=== PATIENT | female | born 1970 | race Caucasian/White ===

== ENCOUNTER 2019-06-24 17:31 | Inpatient (IN) ==
--- NOTE | 2019-06-24 22:01 | Internal Med History&Physical ---
Date of Encounter: 06/24/19 Time of Encounter: 21:34 Internal Medicine - H&P: HPI Chief complaint: Sepsis History of present illness: Ms. Hernandez is a 48 year old female with a past medical history of diabetes, GERD, hyperlipidemia, hypertension, kidney stones, migraines and seizure history who presented from [facility] for evaluation of chest pain. However, on arrival was noted to be tachycardic with a heart rate in the 120s and Blood pressure dipped as low as 93/72. Patient reportedly had incision and drainage of an abscess in her left wrist by orthopedics the day prior. Patient had a surgical procedure on June 09 for her carpal tunnel syndrome and trigger finger release. She reports she had significant pain and swelling this last Thursday. ED attending at [facility] spoke with the orthopedic surgeon Dr. Tatum who had performed the I&D and was informed that the lesion had drained well and felt that if patient is currently septic, it is likely due to a different source of infection. Patient was subsequently transferred here for further evaluation and the need for possible orthopedic services. Blood pressure subsequently responding to 2 liter fluid bolus. Initial laboratory workup notable for a leukocytosis of 18.4, creatinine 1.57, lactic acid of 3.57, normal LFTs and unremarkable UA. Repeat lactic acid found to be 3.3 to. Initial troponin negative. EKG showed sinus tachycardia with a heart rate of 114 in the absence of any ST or T-wave changes concerning for ischemia. CT PE study of the chest was performed which was negative for PE and absent for any evidence of acute cardiopulmonary process. Patient received a loading dose of aspirin 2 L of fluid bolus and vancomycin. With regards to the patient's chest pain, she states she was at home in her kitchen fixing some cereal when she developed some discomfort in the bottom of her throat described as a squeezing sensation which radiated down her esophagus and over 2 her left upper quadrant. Patient had associated nausea and several episodes of nonbloody nonbilious emesis; She did note shortness of breath but feels it was related to anxiety and panic. Chest discomfort appeared to resolve after squad arrived and placed on oxygen. Patient became significantly lightheaded this afternoon when getting up and preparing to leave the hospital and reports nearly blacking out. Patient reports she has been having nausea and vomiting last night as well. Patient did not endorse shortness of breath today with her episode of chest discomfort. Patient denies any sore throat, cough, abdominal pain, diarrhea, dysuria or rash. No recent sick contacts or travel. On my assessment patient was lying in bed in no acute distress. Did not appear septic. Reports significant pain in her left hand which was wrapped in an Aiden bandage. Past Med Surg Social Fam HX - Past Medical History Medical history: arthritis, diabetes, GERD, hyperlipidemia, hypertension, kidney stones, migraine, seizures Additional medical history: VAGINAL HERPES Psychiatric history: anxiety, bipolar, depression, panic disorder, prior suicide attempt - Past Surgical History Surgical History: , cholecystectomy, orthopedic, other Additional surgical history: lithotripsy x 6 - Social History Smoking Status: Current every day smoker Packs per day: 0.5 Smokeless Tobacco Status: No Alcohol use: occasionally Drug use: none - Family History Mother Living Status: Still Living Hx Family Cardiac Disorders: Yes Hx Family Cancer: Yes (nonhodgekins, breast cancer) Hx Family Endocrine Disorder: Yes Internal Medicine - H&P: Meds Acyclovir [Zovirax] 800 mg PO HS 09/15/15 [History] Ibuprofen [Motrin] 800 mg PO TID 09/15/15 [History] Insulin Glargine,Hum.rec.anlog [Lantus Solostar] 55 unit SQ BID 09/15/15 [History] Omeprazole [PriLOSEC] 40 mg PO QAM 09/15/15 [History] TraZODone 100 mg PO HS 09/15/15 [History] hydrOXYzine pamoate [HydrOXYzine Pamoate] 25 mg PO Q12H PRN 11/11/17 [History] lamoTRIgine [Lamictal] 75 mg PO HS 11/11/17 [History] Albuterol Sulfate [Proair Hfa] 1 puff IH Q6H PRN 06/24/19 [History] Cyclobenzaprine HCl 10 mg PO HS PRN 06/24/19 [History] Ergocalciferol (VITAMIN D2) [Vitamin D2] 50,000 unit PO QWEEK 06/24/19 [History] Janumet Xr 50-1,000 mg Tablet 06/24/19 [History] Lisinopril/Hydrochlorothiazide [Zestoretic 10-12.5 mg Tablet] 1 each PO QDPC 06/24/19 [History] Oxycodone HCl/Acetaminophen [Percocet 5-325 mg Tablet] 1 each PO Q6H PRN 06/24/19 [History] Pravastatin Sodium [Pravachol] 40 mg PO QDPC 06/24/19 [History] Pregabalin [Lyrica] 150 mg PO TID 06/24/19 [History] SUMAtriptan succinate [Imitrex] 50 mg PO Q2H 06/24/19 [History] Semaglutide [Ozempic] 0.5 mg SQ QWEEK 06/24/19 [History] Allergy/AdvReac Type Severity Reaction Status Date / Time cefazolin [From Ancef] Allergy Severe Anaphylaxis Verified 06/24/19 20:23 Sulfa (Sulfonamide Allergy Severe Anaphylaxis Verified 08/17/18 16:13 Antibiotics) acetaminophen [From [place]] AdvReac Nausea Verified 08/17/18 16:13 hydrocodone [From [place]] AdvReac Nausea Verified 08/17/18 16:13 All Systems PM: A 10-system review of systems was performed and is negative for pertinent findings except as documented above in the HPI. - Constitutional Constitutional: no chills, no fever(s), no night sweats - EENT Eyes: no change in vision, no discharge, no pain, no photophobia Ears: no ear discharge, no ear pain, no tinnitus Nose, mouth and throat: no dysphagia, no nasal discharge, no neck pain, no sore throat - Cardiovascular Cardiovascular ROS IM: no chest pain, no diaphoresis, no dyspnea, no lightheadedness, no palpitations, no syncope - Respiratory Respiratory: no cough, no dyspnea, no wheezing, no excessive phlegm production - Gastrointestinal Gastrointestinal: no abdominal pain, no diarrhea, no hematemesis, no hematochezia, no melena, no nausea, no vomiting - Genitourinary Genitourinary: no change in urinary stream, no dysuria, no flank pain, no hansel turia - Musculoskeletal Musculoskeletal ROS IM: no numbness, no tingling - Integumentary Integumentary IM: no rash, no unusual bruising - Neurological Neurological ROS: no confusion, no convulsions, no focal weakness, no numbness, no tingling, no tremor(s) - Hematologic/Lymphatic Hematologic/Lymphatic: no easy bruising - Constitutional Vitals: Temp Pulse Resp BP Pulse Ox 97.6 F 99 17 135/85 97 06/24/19 20:16 06/24/19 20:16 06/24/19 20:16 06/24/19 20:16 06/24/19 20:16 Exam: General: Alert and oriented 3 lying in bed in no acute distress Skin:Normal color, no rash, no lesions. HEENT:EOM, pupils equal, round and reactive. Cardiovascular:Normal S1 & S2, no rubs, murmurs or gallops. No JVD. Pulse regular. Lungs:Normal breath sounds, no wheezes or crackles. Abdomen:Soft, non-tender, no rigidity. Extremities: Left wrist and hand tender to palpation. Stitches intact without any evidence of purulent drainage. No erythema noted. Neurological:Normal cognition and motor skills. Pulses:Carotid and radial pulses normal +2. Rest of the physical exam is non contributory Internal Med - H&P Results - Labs CBC & Chem 7: 06/24/19 22:41 06/24/19 22:41 - Assessment and Plan (1) Severe sepsis Current Visit: Yes Status: Acute Assessment and plan: Severe sepsis of unclear etiology. Patient found to be tachycardic with a heart rate in the 120s and hypotensive responding to 2 L of fluid bolus. White count of over 18 with a elevated lactic acid of over 3. Was started on vancomycin for possible skin and soft tissue infection involving the left wrist. At this time likely source postoperative wound infection of the left wrist/hand as there is no other clear source of infection. Patient currently hemodynamically stable. -Continue with maintenance fluids -Telemetry -Continue antibiotics with vancomycin. Will add Zosyn -We will obtain repeat blood cultures -Consider infectious disease consult if patient does not improve. (2) Cellulitis Current Visit: Yes Status: Suspected Assessment and plan: Concern for skin and soft tissue involving the left wrist status post incision and drainage yesterday by orthopedics. Stitches intact with no evidence of puru lent drainage. No surrounding erythema though Patient still complaining of severe pain and tenderness in the region. We will obtain CT scan of the hand to assess for any further fluid collection/subcutaneous gas. Patient did have mild elevation in her creatinine which I suspect is prerenal in the setting of her hypotension and tachycardia. We will reassess response to fluids to determine if patient can receive contrast for CT imaging. -Spoke with Dr. Talbot with orthopedics who will see patient in the morning. Recommended holding off any further imaging of the hand for now. -Continue broad-spectrum antibiotic coverage -Follow-up blood cultures Qualifiers: Site of cellulitis of extremity: upper extremity Laterality: left Qualified Code(s): L03.114 - Cellulitis of left upper limb (3) Acute kidney injury Current Visit: Yes Status: Acute Assessment and plan: Patient found to have a elevated creatinine of 1.5. Most previous creatinine level in our records was from July 2018. I suspect prerenal in the setting of severe sepsis with her hypotension and tachycardia. Patient is diabetic however. -Continue maintenance fluids -We will reassess kidney function -We will obtain a repeat UA and random protein/creatinine ratio (4) History of seizures Current Visit: Yes Status: Chronic Assessment and plan: Resume patient's antiepileptic medication. (5) DVT prophylaxis Current Visit: Yes Status: Acute Assessment and plan: Subcutaneous heparin - Time Spent With Patient Total time spent is greater than 50% in coordination of care (as documented) at patient's floor/unit and/or counseling patient:
[2019-06-24] MEDS ORDERED: Naloxone 0.4 MG/ML INJ IVP PRN (22:02)
[2019-06-24] MEDS ORDERED: Ondansetron 4 MG/2 ML VIAL IVP PRN (22:02)
[2019-06-24] MEDS ORDERED: Acetaminophen 325 MG TABLET PO PRN (22:02)
[2019-06-24] MEDS ORDERED: D5% in Water 1,000 ML IVC PRN (22:05)
[2019-06-24] MEDS ORDERED: Dextrose Gel 15 GM/37.5 ML TUBE PO PRN ×2 (22:05)
[2019-06-24] MEDS ORDERED: *HR* Dextrose 50 % in Water (Syg) 50 ML SYRINGE IVP PRN (22:05)
[2019-06-24] MEDS ORDERED: hydrOXYzine pamoate 25 MG CAPSULE PO PRN (22:06)
[2019-06-24] MEDS ORDERED: 0.9 % Sodium Chloride 1,000 ML IVC SCH (22:15)
[2019-06-24 23:04] LABS: Basophils % 0.3 %; Eosinophils % 0.3 %; Hematocrit 29.3 % (35.3-44.9); Hemoglobin 9.6 g/dL (11.5-15.4); Immature Granulocytes % 0.6 % (0-4); Lymphocytes # 3.1 K/mcL (0.6-4.6); Lymphocytes % 26.8 %; Mean Corpuscular HGB Conc 32.8 g/dL (31.6-35.5); Mean Corpuscular Hemoglobin 28.2 pg (28.0-33.3); Mean Corpuscular Volume 85.9 fL (83.0-100.0); Mean Platelet Volume 11.1 fL (9.4-12.4); Monocytes # 0.8 K/mcL (0.0-1.3); Monocytes % 7.3 %; Neutrophils # 7.4 K/mcL (1.6-8.9); Platelet Count 187 K/mcL (140-400); Red Blood Count 3.41 M/mcL (3.82-4.97); Red Cell Distribution Width 16.5 % (11.5-14.5); Segmented Neutrophils % 64.7 %; White Blood Count 11.4 K/mcL (4.3-11.1)
[2019-06-24 23:05] LABS: Estimated Average Glucose 235 mg/dl
[2019-06-24 23:10] LABS: Prothrombin Time 11.7 Seconds (9.4-12.1)
[2019-06-24] MEDS: Pregabalin 75 MG CAPSULE PO SCH (23:11)
[2019-06-24] MEDS: traZODone 50 MG TABLET PO SCH (23:12)
[2019-06-24] MEDS: lamoTRIgine 25 MG TABLET PO SCH (23:12)
[2019-06-24 23:13] LABS: Activated Partial Thrombo Time 25.4 Seconds (26.0-36.0)
[2019-06-24] MEDS: Insulin LISPRO 300 UNITS/3 ML VIAL SQ SCH (23:14)
[2019-06-24] MEDS: Piperacillin/Tazobactam 3.375 GM in 0.9 % Sodium Chloride Mini Bag 100 ML IVPB SCH (23:15)
[2019-06-24 23:24] LABS: Alanine Aminotransferase 25 Units/L (7-52); Albumin 3.3 g/dL (3.5-5.7); Albumin/Globulin Ratio 1.3 (1.1-2.2); Alkaline Phosphatase 50 Units/L (34-104); Aspartate Amino Transferase 11 Units/L (13-39); BUN/Creatinine Ratio 24 (6-26); Bilirubin,Total 0.3 mg/dL (0.3-1.0); Blood Urea Nitrogen 30 mg/dL (6-20); Calcium 7.6 mg/dL (8.6-10.3); Carbon Dioxide 20 mEq/L (23-29); Chloride 107 mEq/L (98-107); Globulin 2.6 g/dL (2.4-3.5); Glucose 244 mg/dL (70-105); Magnesium 0.8 mg/dL (1.6-2.6); Osmolality,Calculated 292 (280-300); Potassium 4.5 mEq/L (3.5-5.1); Sodium 134 mEq/L (136-145); Total Protein 5.9 g/dL (6.4-8.9); Troponin I < 0.03 ng/mL (< 0.04); eGFR For African Americans 56 (> 60); eGFR For Non-African Americans 46 (> 60)
[2019-06-24] MEDS ORDERED: Insulin DETEMIR 100 UNIT/ML X5UNITS SQ SCH (23:39)
[2019-06-24] MEDS ORDERED: Cholecalciferol (D-3) 1,000 UNIT (25MCG) TABLET PO SCH (23:45)
[2019-06-25] MEDS: *HR* Heparin 5,000 UNIT/ML VIAL SQ SCH ×4 (01:31→20:19)
[2019-06-25] MEDS: Cholecalciferol (D-3) 1,000 UNIT (25MCG) TABLET PO SCH ×3 (01:32→12:50)
[2019-06-25 02:38] LABS: Bilirubin,Urine Negative (Negative); Blood,Urine Negative (Negative); Clarity,Urine Clear (Clear); Color,Urine Yellow (Yellow); Glucose,Urine (UA) >=1000 mg/dL (Normal); Ketones,Urine Negative (Negative); Leukocyte Esterase,Urine Negative (Negative); Nitrite,Urine Negative (Negative); Protein,Urine Negative (Neg-Trace); Specific Gravity,Urine 1.022 (1.010-1.025); Urobilinogen,Urine Normal (Normal)
[2019-06-25 02:49] LABS: Protein/Creatinine Ratio,Urine 0.15 mg/mg (0.00-0.20)
[2019-06-25] MEDS ORDERED: SUMAtriptan succinate 50 MG TABLET PO PRN (07:45)
[2019-06-25] MEDS: Insulin LISPRO 300 UNITS/3 ML VIAL SQ SCH ×3 (08:41→17:24)
[2019-06-25] MEDS: 0.9 % Sodium Chloride 1,000 ML IVC SCH ×2 (08:43→18:19)
[2019-06-25] MEDS: Pregabalin 75 MG CAPSULE PO SCH ×3 (08:43→20:18)
[2019-06-25] MEDS: Piperacillin/Tazobactam 3.375 GM in 0.9 % Sodium Chloride Mini Bag 100 ML IVPB SCH ×2 (08:44→14:45)
--- NOTE | 2019-06-25 11:41 | Internal Med Progress Note ---
Hospitalist Progress Note - Encounter Date of Encounter: 06/25/19 Time of Encounter: 08:30 - Subjective Interval History: H&P reviewed. Patient with history of hypertension and diabetes, who recently had I&D for ?L wrist infection following carpal tunnel release, was admitted overnight due to the concern for sepsis secondary to L wrist infection. Both CT chest and urinalysis did not show any source of infection. Patient was tachycardic and hypotensive on presentation to the OSH ED and had leukocytosis, HOPE, and lactic acidosis. Clinically improved overnight after IVF, IV Abx, with normalization of lactic acid and BP. She continues to report severe pain over L wrist. No fever overnight. - Exam Vitals: Temp Pulse Resp BP Pulse Ox 98.8 F 97 18 110/73 95 06/25/19 10:20 06/25/19 10:20 06/25/19 10:20 06/25/19 10:20 06/25/19 10:20 Exam: General: Alert and oriented 3, mild distress due to pain Cardiovascular:Normal S1 & S2, no rubs, murmurs or gallops. No JVD. Pulse regular. Lungs:Normal breath sounds, no wheezes or crackles. Abdomen:Soft, non-tender, no rigidity. Extremities: Left wrist and incision on L palm tender to palpation. Stitches intact without any evidence of purulent drainage however and there is no significant erythema noted. Neurological:Normal cognition and motor skills. - Assessment and Plan (1) Severe sepsis Current Visit: Yes Status: Acute Assessment and Plan: Presented with L wrist pain, tachycardia, hypotension, and leukocytosis. Initial lactic acid also elevated clinically improved with IVF and broad spectrum abx. No other possible sources of infection identified on CTA chest or urinalysis. No other localizing symptoms. At this time, given her clinical improvement, will continue to treat per postoperative wound infection of the left wrist/hand imaging study of the left UE was discussed with orthopedics overnight who recommended to hold off for now. Will await for their review Follow up on blood cultures (2) Wound infection Current Visit: Yes Status: Acute Assessment and Plan: as above (3) Acute kidney injury Current Visit: Yes Status: Acute Assessment and Plan: Cr downtrending on IVF, likely pre-renal +/- ATN from sepsis continue IVF monitor Cr, avoid nephrotoxins (4) Diabetes Current Visit: No Status: Chronic Assessment and Plan: Continue basal bolus insulin (5) History of seizures Current Visit: Yes Status: Chronic Assessment and Plan: resume home meds (6) DVT prophylaxis Current Visit: Yes Status: Acute Assessment and Plan: SQ heparin - Time Spent with Patient Total time spent is greater than 50% in coordination of care (as documented) at patient's floor/unit and/or counseling patient: 25 - 35 minutes Plan of Care Discussed with: patient Internal Medicine: Result - Labs CBC & Chem 7: 06/24/19 22:41 06/24/19 22:41 Labs: Short CBC 06/24/19 Range/Units 22:41 WBC 11.4 H (4.3-11.1) K/mcL Hgb 9.6 L (11.5-15.4) g/dL Hct 29.3 L (35.3-44.9) % Plt Count 187 (140-400) K/mcL Neutrophils # 7.4 (1.6-8.9) K/mcL BMP 06/24/19 22:41 Sodium 134 L Potassium 4.5 Chloride 107 Carbon Dioxide 20 L BUN 30 H Creatinine 1.25 H Glucose 244 H Calcium 7.6 L Cardiac Enzymes 06/24/19 Range/Units 22:41 Troponin I < 0.03 (< 0.04) ng/mL Liver Function 06/24/19 Range/Units 22:41 Total Bilirubin 0.3 (0.3-1.0) mg/dL AST 11 L (13-39) Units/L ALT 25 (7-52) Units/L Alkaline Phosphatase 50 (34-104) Units/L Albumin 3.3 L (3.5-5.7) g/dL Urine 06/25/19 Range/Units 02:10 Urine Color Yellow (Yellow) Urine Clarity Clear (Clear) Urine pH 6.0 (5.0-8.0) pH Units Ur Specific Wideman 1.022 (1.010-1.025) Urine Protein Negative (Neg-Trace) mg/dL Urine Glucose (UA) >=1000 H (Normal) mg/dL - ABG Interpretation ABG results: PT/INR, D-dimer PT 11.7 Seconds (9.4-12.1) 06/24/19 22:41 Consult Discharge Plan - Plan Referrals: NONE,PCP [Primary Care Provider] - (4) Diabetes Qualifiers: Diabetes mellitus type: type 2 Diabetes mellitus complication status: with other specified complication
[2019-06-25] MEDS: *HR* OxyCODONE Immed Rel 5 MG TABLET PO PRN ×2 (14:46→20:18)
--- NOTE | 2019-06-25 15:54 | Orthopedics Progress Note ---
Date of Encounter: 06/25/19 Time of Encounter: 15:49 Subjective Principal diagnosis: Left wrist postoperative wound infection Interval history: Patient is postoperative day #2 status post a left wrist incision drainage after prior endoscopic carpal tunnel release. There was no gross pus encountered but a lot of inflamed tissue and the flexor to select was performed. The wound was washed out and closed with packing placed through a small opening. She was seen yesterday morning with the packing was removed and fresh dressing was placed. She later felt sick and went to emergency room at [facility], patient met criteria for sepsis and was transferred for management. She says she is feeling better today but still does have wrist pain. Physical exam: Left upper extremity dressings were taken down, there is mild swelling in the palm, erythema in the form was resolved. The wounds are intact with sutures in place. There is mild serosanguineous drainage from the small opening of the wrist. Patient has good wrist motion but very stiff and painful digital motion. Passively I am able to do full range of motion of digits. Assessment: Postoperative day #2 status post left wrist I&D, wound appears clean Patient's lab works improving Plan: Continue dressing changes 3 times a day Elevation of left hand Patient encouraged to do digital motion exercises and wrist motion exercises Continue IV vancomycin We will try to obtain the culture results taken at [facility] Objective Vital signs: Vital Signs Temp Pulse Resp BP Pulse Ox 06/25/19 15:26 98.1 F 66 17 117/74 99 06/25/19 10:20 98.8 F 97 18 110/73 95 06/25/19 07:00 97.4 F L 87 18 109/77 97 06/25/19 03:06 98.3 F 81 17 109/72 95 06/25/19 00:00 98.7 F 85 17 138/72 96 06/24/19 20:16 97.6 F 99 17 135/85 97 Intake and Output 06/24/19 06/25/19 06/25/19 23:59 07:59 15:59 Intake Total 1350 / 2420 1070 / 2420 Output Total 1150 / 1150 Balance 1350 / 1270 -80 / 1270 Intake: IV Fluids 1350 / 1700 350 / 1700 0.9 % Sodium Chloride 1,000 ML 1000 / 1000 @ 125 mls/hr IVC .Q8H [facility] Rx#: [id number] Zosyn 3.375 GM In 0.9 % Sodium 100 / 200 100 / 200 Chloride (Mini-Bag +) 100 ML @ 25 mls/hr IVPB Q8HR [facility] Rx#: [id number] Vancocin 1,000 MG In 0.9 % 250 / 250 Sodium Chloride 250 ML @ 167 mls/hr IVPB ONCE ONE Rx#: [id number] Vancocin 1,250 MG In 0.9 % 250 / 250 Sodium Chloride 250 ML @ 166.67 mls/hr IVPB Q12H [facility] Rx#: [id number] Oral 720 / 720 Output: Urine 1150 / 1150 Other: Meal Lunch Percent of Meal Consumed 100% # Voids 1 Weight 108.1 kg Blood Glucose* 251 237 238 - Labs CBC & BMP: 06/24/19 22:41 06/24/19 22:41 Labs: Abnormal lab results WBC 11.4 K/mcL (4.3-11.1) H 06/24/19 22:41 RBC 3.41 M/mcL (3.82-4.97) L 06/24/19 22:41 Hgb 9.6 g/dL (11.5-15.4) L 06/24/19 22:41 Hct 29.3 % (35.3-44.9) L 06/24/19 22:41 RDW 16.5 % (11.5-14.5) H 06/24/19 22:41 APTT 25.4 Seconds (26.0-36.0) L 06/24/19 22:41 Sodium 134 mEq/L (136-145) L 06/24/19 22:41 Carbon Dioxide 20 mEq/L (23-29) L 06/24/19 22:41 BUN 30 mg/dL (6-20) H 06/24/19 22:41 Creatinine 1.25 mg/dL (0.60-1.20) H 06/24/19 22:41 Est GFR ( Amer) 56 (> 60) L 06/24/19 22:41 Est GFR (Non-Af Amer) 46 (> 60) L 06/24/19 22:41 Glucose 244 mg/dL (70-105) H 06/24/19 22:41 POC Glucose 249 mg/dL (70-99) H 06/25/19 00:05 Hemoglobin A1c 9.8 % (-5.6) H 06/24/19 22:41 Calcium 7.6 mg/dL (8.6-10.3) L 06/24/19 22:41 Magnesium 0.8 mg/dL (1.6-2.6) L 06/24/19 22:41 AST 11 Units/L (13-39) L 06/24/19 22:41 Serum Total Protein 5.9 g/dL (6.4-8.9) L 06/24/19 22:41 Albumin 3.3 g/dL (3.5-5.7) L 06/24/19 22:41 Urine Glucose (UA) >=1000 mg/dL (Normal) H 06/25/19 02:10 Consult Discharge Plan - Plan Referrals: NONE,PCP [Primary Care Provider] -
[2019-06-25] MEDS ORDERED: Fluconazole 100 MG TABLET PO ONE (16:32)
[2019-06-25] MEDS: lamoTRIgine 25 MG TABLET PO SCH (20:18)
[2019-06-25] MEDS: traZODone 50 MG TABLET PO SCH (20:18)
[2019-06-25] MEDS: Insulin DETEMIR 100 UNIT/ML X5UNITS SQ SCH (20:18)
[2019-06-25] MEDS: traMADol 50 MG TABLET PO PRN (22:10)
[2019-06-26] MEDS: Piperacillin/Tazobactam 3.375 GM in 0.9 % Sodium Chloride Mini Bag 100 ML IVPB SCH ×2 (00:18→08:28)
[2019-06-26] MEDS: *HR* OxyCODONE Immed Rel 5 MG TABLET PO PRN ×4 (03:28→21:31)
[2019-06-26] MEDS: *HR* Heparin 5,000 UNIT/ML VIAL SQ SCH ×3 (05:18→21:32)
[2019-06-26 05:34] LABS: Basophils % 0.4 %; Eosinophils # 0.1 K/mcL (0.0-0.6); Eosinophils % 1.2 %; Hematocrit 33.1 % (35.3-44.9); Hemoglobin 10.6 g/dL (11.5-15.4); Immature Granulocytes % 0.4 % (0-4); Lymphocytes # 3.8 K/mcL (0.6-4.6); Lymphocytes % 41.9 %; Mean Corpuscular Hemoglobin 28.3 pg (28.0-33.3); Mean Corpuscular Volume 88.5 fL (83.0-100.0); Monocytes # 0.6 K/mcL (0.0-1.3); Monocytes % 6.8 %; Neutrophils # 4.5 K/mcL (1.6-8.9); Platelet Count 176 K/mcL (140-400); Red Blood Count 3.74 M/mcL (3.82-4.97); Red Cell Distribution Width 16.5 % (11.5-14.5); Segmented Neutrophils % 49.3 %; White Blood Count 9.1 K/mcL (4.3-11.1)
[2019-06-26 05:56] LABS: BUN/Creatinine Ratio 20 (6-26); Blood Urea Nitrogen 18 mg/dL (6-20); Calcium 8.2 mg/dL (8.6-10.3); Carbon Dioxide 22 mEq/L (23-29); Chloride 105 mEq/L (98-107); Glucose 219 mg/dL (70-105); Osmolality,Calculated 287 (280-300); Potassium 4.2 mEq/L (3.5-5.1); Sodium 134 mEq/L (136-145); eGFR For African Americans > 60 (> 60); eGFR For Non-African Americans > 60 (> 60)
[2019-06-26] MEDS: Pregabalin 75 MG CAPSULE PO SCH ×3 (08:27→21:32)
[2019-06-26] MEDS: Cholecalciferol (D-3) 1,000 UNIT (25MCG) TABLET PO SCH (08:28)
[2019-06-26] MEDS: Insulin LISPRO 300 UNITS/3 ML VIAL SQ SCH ×4 (08:28→21:33)
[2019-06-26] MEDS: traMADol 50 MG TABLET PO PRN ×2 (11:47→18:42)
--- NOTE | 2019-06-26 12:14 | Internal Med Progress Note ---
Hospitalist Progress Note - Encounter Date of Encounter: 06/26/19 Time of Encounter: 10:00 - Subjective Interval History: Reports mild improvement in her left wrist pain. Denies any cough, sputum production, or chest pain. No fever overnight. - Exam Vitals: Temp Pulse Resp BP Pulse Ox 98.0 F 69 17 139/88 98 06/26/19 11:26 06/26/19 11:26 06/26/19 11:26 06/26/19 11:26 06/26/19 11:26 Exam: General: Alert and oriented 3, mild distress due to pain Cardiovascular:Normal S1 & S2, no rubs, murmurs or gallops. No JVD. Pulse regular. Lungs:Normal breath sounds, no wheezes or crackles. Abdomen:Soft, non-tender, no rigidity. Extremities: Left wrist and incision on L palm tender to palpation. Stitches intact without any evidence of purulent drainage however and there is no significant erythema noted. Neurological:Normal cognition and motor skills. - Assessment and Plan (1) Severe sepsis Current Visit: Yes Status: Acute Assessment and Plan: Presented with L wrist pain, tachycardia, hypotension, and leukocytosis. Initial lactic acid also elevated clinically improved with IVF and broad spectrum abx. No other possible sources of infection identified on CTA chest or urinalysis. No other localizing symptoms. At this time, given her clinical improvement, will continue to treat per postoperative wound infection of the left wrist/hand appreciate ortho input. For broad sepctrum abx and follow up on wound culture from outside hospital. No imaging studies recommended for ow blood cultures NGTD for 36 hours once blood cultures remains -ve for > 48 hours and wound culture comes back, anticipate d/c tomorrow on PO abx (2) Wound infection Current Visit: Yes Status: Acute Assessment and Plan: as above (3) Acute kidney injury Current Visit: Yes Status: Acute Assessment and Plan: Cr downtrending on IVF, likely pre-renal +/- ATN from sepsis will d/c IVF today and monitor Cr avoid nephrotoxins (4) Diabetes Current Visit: No Status: Chronic Assessment and Plan: Continue basal bolus insulin but increase sliding scale to moderate dose (5) History of seizures Current Visit: Yes Status: Chronic Assessment and Plan: resume home meds (6) DVT prophylaxis Current Visit: Yes Status: Acute Assessment and Plan: SQ heparin - Time Spent with Patient Total time spent is greater than 50% in coordination of care (as documented) at patient's floor/unit and/or counseling patient: 25 - 35 minutes Plan of Care Discussed with: patient Internal Medicine: Result - Labs CBC & Chem 7: 06/26/19 04:29 06/26/19 04:29 Labs: Short CBC 06/26/19 Range/Units 04:29 WBC 9.1 (4.3-11.1) K/mcL Hgb 10.6 L (11.5-15.4) g/dL Hct 33.1 L (35.3-44.9) % Plt Count 176 (140-400) K/mcL Neutrophils # 4.5 (1.6-8.9) K/mcL BMP 06/26/19 04:29 Sodium 134 L Potassium 4.2 Chloride 105 Carbon Dioxide 22 L BUN 18 Creatinine 0.91 Glucose 219 H Calcium 8.2 L - ABG Interpretation ABG results: PT/INR, D-dimer PT 11.7 Seconds (9.4-12.1) 06/24/19 22:41 Consult Discharge Plan - Plan Referrals: NONE,PCP [Primary Care Provider] - __ (4) Diabetes Qualifiers: Diabetes mellitus type: type 2 Diabetes mellitus complication status: with other specified complication
--- NOTE | 2019-06-26 15:26 | Orthopedics Progress Note ---
Date of Encounter: 06/26/19 Time of Encounter: 15:23 Subjective Principal diagnosis: Left wrist postoperative wound infection Interval history: Patient reports pain to the left wrist. The dressings were changed to those ago. Physical exam: Left upper extremity dressings were taken down, there is minimal swelling in the palm, no erythema. The wounds are intact with sutures in place. There is mild purulent drainage from the small opening of the wrist. Patient has good wrist motion but very stiff and painful digital motion. Passively I am able to do full range of motion of digits. Assessment: Postoperative day #3 status post left wrist I&D, wound appears clean Patient's labwork continues to improve Cultures from [facility] are still pending Plan: Continue dressing changes 3 times a day Elevation of left hand Patient encouraged to do digital motion exercises and wrist motion exercises Continue IV vancomycin We will try to obtain the wound culture results taken at [facility] from 06/22/18 Objective Vital signs: Vital Signs Temp Pulse Resp BP Pulse Ox 06/26/19 11:26 98.0 F 69 17 139/88 98 06/26/19 07:18 97.4 F L 67 18 135/86 98 06/26/19 04:12 98.2 F 70 20 104/68 94 06/25/19 23:43 98.8 F 80 20 121/82 97 06/25/19 19:00 98.1 F 77 16 119/82 96 06/25/19 15:26 98.1 F 66 17 117/74 99 Intake and Output 06/25/19 06/26/19 06/26/19 23:59 07:59 15:59 Intake Total 1100 / 3520 350 / 590 240 / 590 Output Total 2250 / 3600 1000 / 1000 Balance -1150 / -80 -650 / -410 240 / -410 Intake: IV Fluids 1100 / 2800 350 / 350 0.9 % Sodium Chloride 1,000 ML 1000 / 1000 @ 100 mls/hr IVC .Q10H [facility] Rx#: [id number] Zosyn 3.375 GM In 0.9 % Sodium 100 / 300 100 / 100 Chloride (Mini-Bag +) 100 ML @ 25 mls/hr IVPB Q8HR [facility] Rx#: [id number] Vancocin 1,250 MG In 0.9 % 250 / 250 Sodium Chloride 250 ML @ 166.67 mls/hr IVPB Q12H [facility] Rx#: [id number] Oral 240 / 240 Output: Urine 2250 / 3600 1000 / 1000 Other: Meal Lunch Percent of Meal Consumed 100% Stool Size Moderate Stool Consistency formed Stool Characteristics Normal for Patient Stool Color Brown # Bowel Movements 1 Blood Glucose* 212 267 241 - Labs CBC & BMP: 06/26/19 04:29 06/26/19 04:29 Labs: Abnormal lab results WBC 11.4 K/mcL (4.3-11.1) H 06/24/19 22:41 RBC 3.74 M/mcL (3.82-4.97) L 06/26/19 04:29 Hgb 10.6 g/dL (11.5-15.4) L 06/26/19 04:29 Hct 33.1 % (35.3-44.9) L 06/26/19 04:29 RDW 16.5 % (11.5-14.5) H 06/26/19 04:29 APTT 25.4 Seconds (26.0-36.0) L 06/24/19 22:41 Sodium 134 mEq/L (136-145) L 06/26/19 04:29 Carbon Dioxide 22 mEq/L (23-29) L 06/26/19 04:29 BUN 30 mg/dL (6-20) H 06/24/19 22:41 Creatinine 1.25 mg/dL (0.60-1.20) H 06/24/19 22:41 Est GFR ( Amer) 56 (> 60) L 06/24/19 22:41 Est GFR (Non-Af Amer) 46 (> 60) L 06/24/19 22:41 Glucose 219 mg/dL (70-105) H 06/26/19 04:29 POC Glucose 267 mg/dL (70-99) H 06/26/19 06:31 Hemoglobin A1c 9.8 % (-5.6) H 06/24/19 22:41 Calcium 8.2 mg/dL (8.6-10.3) L 06/26/19 04:29 Magnesium 0.8 mg/dL (1.6-2.6) L 06/24/19 22:41 AST 11 Units/L (13-39) L 06/24/19 22:41 C-Reactive Protein 21 mg/L (Less than 10) H 06/26/19 04:29 Serum Total Protein 5.9 g/dL (6.4-8.9) L 06/24/19 22:41 Albumin 3.3 g/dL (3.5-5.7) L 06/24/19 22:41 Urine Glucose (UA) >=1000 mg/dL (Normal) H 06/25/19 02:10 Consult Discharge Plan - Plan Referrals: NONE,PCP [Primary Care Provider] -
[2019-06-26] MEDS: lamoTRIgine 25 MG TABLET PO SCH (21:31)
[2019-06-26] MEDS: traZODone 50 MG TABLET PO SCH (21:32)
[2019-06-26] MEDS: Insulin DETEMIR 100 UNIT/ML X5UNITS SQ SCH (21:33)
[2019-06-27] MEDS: traMADol 50 MG TABLET PO PRN (02:53)
[2019-06-27 05:29] LABS: Basophils % 0.3 %; Eosinophils # 0.2 K/mcL (0.0-0.6); Eosinophils % 1.5 %; Hematocrit 34.3 % (35.3-44.9); Immature Granulocytes % 0.6 % (0-4); Lymphocytes # 3.5 K/mcL (0.6-4.6); Lymphocytes % 34.6 %; Mean Corpuscular HGB Conc 32.1 g/dL (31.6-35.5); Mean Corpuscular Hemoglobin 28.1 pg (28.0-33.3); Mean Corpuscular Volume 87.5 fL (83.0-100.0); Mean Platelet Volume 11.5 fL (9.4-12.4); Monocytes # 0.7 K/mcL (0.0-1.3); Monocytes % 6.6 %; Neutrophils # 5.7 K/mcL (1.6-8.9); Nucleated Red Blood Cells 0.2 /100 WBC (0); Platelet Count 214 K/mcL (140-400); Red Blood Count 3.92 M/mcL (3.82-4.97); Red Cell Distribution Width 15.9 % (11.5-14.5); Segmented Neutrophils % 56.4 %; White Blood Count 10.2 K/mcL (4.3-11.1)
[2019-06-27 05:51] LABS: BUN/Creatinine Ratio 18 (6-26); Blood Urea Nitrogen 16 mg/dL (6-20); Calcium 9.2 mg/dL (8.6-10.3); Carbon Dioxide 24 mEq/L (23-29); Chloride 98 mEq/L (98-107); Glucose 295 mg/dL (70-105); Osmolality,Calculated 286 (280-300); Potassium 4.2 mEq/L (3.5-5.1); Sodium 132 mEq/L (136-145); eGFR For African Americans > 60 (> 60); eGFR For Non-African Americans > 60 (> 60)
[2019-06-27] MEDS: *HR* Heparin 5,000 UNIT/ML VIAL SQ SCH ×3 (06:09→21:58)
[2019-06-27] MEDS: Pregabalin 75 MG CAPSULE PO SCH ×3 (08:12→21:59)
[2019-06-27] MEDS: *HR* OxyCODONE Immed Rel 5 MG TABLET PO PRN ×3 (08:14→21:59)
[2019-06-27] MEDS: Insulin LISPRO 300 UNITS/3 ML VIAL SQ SCH ×4 (08:15→21:57)
--- NOTE | 2019-06-27 11:01 | Internal Med Progress Note ---
Hospitalist Progress Note - Encounter Date of Encounter: 06/27/19 Time of Encounter: 08:30 - Subjective Interval History: Improving left wrist pain. Remains hemodynamically stable. No fever/chills or nausea/vomiting overnight. - Exam Vitals: Temp Pulse Resp BP Pulse Ox 98.6 F 76 18 117/80 96 06/27/19 07:45 06/27/19 07:45 06/27/19 07:45 06/27/19 07:45 06/27/19 07:45 Exam: General: Alert and oriented 3, not in distress Cardiovascular:Normal S1 & S2, no rubs, murmurs or gallops. No JVD. Pulse regular. Lungs:Normal breath sounds, no wheezes or crackles. Abdomen:Soft, non-tender, no rigidity. Extremities: Left hand dressing c/d/i Neurological:Normal cognition and motor skills. - Assessment and Plan (1) Severe sepsis Current Visit: Yes Status: Acute Assessment and Plan: Presented with L wrist pain, tachycardia, hypotension, and leukocytosis. Initial lactic acid also elevated concern for postoperative wound infection of the left wrist/hand +/- tenosynovitis improving on broad spectrum abx, wound culture came back with MRSA from [facility] d/c zosyn, continue IV Vanc discussed with orthopedics yesterday, there was a concern for inflammation of tendon noted intraoperatively consult ID for duration/choice of abx for discharge, may need prolonged IV abx blood cultures NGTD (2) Wound infection Current Visit: Yes Status: Acute Assessment and Plan: as above (3) Acute kidney injury Current Visit: Yes Status: Resolved Assessment and Plan: resolved (4) Diabetes Current Visit: No Status: Chronic Assessment and Plan: Continue basal bolus insulin, will further increase levemir to 40U HS (5) History of seizures Current Visit: Yes Status: Chronic Assessment and Plan: resume home meds (6) DVT prophylaxis Current Visit: Yes Status: Acute Assessment and Plan: SQ heparin - Time Spent with Patient Total time spent is greater than 50% in coordination of care (as documented) at patient's floor/unit and/or counseling patient: 25 - 35 minutes Plan of Care Discussed with: contact center consultant (discussed with ID) Internal Medicine: Result - Labs CBC & Chem 7: 06/27/19 04:09 06/27/19 04:09 Labs: Short CBC 06/27/19 Range/Units 04:09 WBC 10.2 (4.3-11.1) K/mcL Hgb 11.0 L (11.5-15.4) g/dL Hct 34.3 L (35.3-44.9) % Plt Count 214 (140-400) K/mcL Neutrophils # 5.7 (1.6-8.9) K/mcL BMP 06/27/19 04:09 Sodium 132 L Potassium 4.2 Chloride 98 Carbon Dioxide 24 BUN 16 Creatinine 0.90 Glucose 295 H Calcium 9.2 - ABG Interpretation ABG results: PT/INR, D-dimer PT 11.7 Seconds (9.4-12.1) 06/24/19 22:41 Consult Discharge Plan - Plan Referrals: NONE,PCP [Primary Care Provider] - (4) Diabetes Qualifiers: Diabetes mellitus type: type 2 Diabetes mellitus complication status: with other specified complication
--- NOTE | 2019-06-27 11:47 | Infectious Disease Consult ---
Infectious Disease-Consult - Encounter Date/Time Date of Encounter: 06/27/19 Time of Encounter: 12:32 - Data of Consult Patient: new to practice Reason for consult: "MRSA wound infection of L wrist with possible tenosynovitis" Consult date: 06/27/19 Requesting Physician: Owen Cobos MD Primary Care Provider: PCP NONE - HPI HPI: Ms. Hernandez is a 48-year-old female with past medical history diabetes, GERD, hyperlipidemia, hypertension, kidney stones, migraines, seizure disorder, and carpal tunnel status post release and trigger finger release 06/09/19. The patient was admitted to the hospital 06/24/19 for sepsis and wrist pain. We are consulted 06/27/19 for further workup and treatment recommendations for left wrist infection with possible tenosynovitis. Briefly, the patient is a 48 year old female with a past medical history as stated below. The patient underwent a left carpal tunnel and trigger finger r elease 06/09/19. Last Thursday, she developed severe pain in the left wrist with some associated swelling. She went to [facility] ER and was advised to follow-up with her surgoen on Thursday. She was noted to have pain, redness, and swelling and she was taken to the operating room 06/23/19 and underwent a left wrist I&D. She was placed on oral doxycycline and Levaquin postop. Intraoperative cultures are positive for MRSA, anaerobic cultures are no growth to date. On the day of admission, she developed worsening left wrist pain with some shortness of breath, chest pain, nausea and vomiting and syncope. She went to [facility] was noted to have a leukocytosis, lactic acidosis, and acute kidney injury. Urinalysis and LFTs were normal. She had a CTA of the chest that was negative for PE and nonrevealing for infectious etiology. She was noted to be hypotensive as she received 2 L of IV fluid as well as IV vancomycin and was transferred here for further evaluation. Since admission, the patient's leukocytosis has resolved. Acute kidney injury and lactic acidosis have resolved. She has been afebrile and hemodynamically stable. She had a transthoracic echocardiogram showed an EF of 55%. Orthopedics was consulted and did not recommend any additional surgical interve ntion. No imaging of the wrist has been done. CRP was checked and was elevated at 21. Currently, she is on vancomycin. She was previously on Zosyn as well. We have been asked to evaluate and make further recommendations. During my exam today, the patient endorses a history as stated above. She denies fevers, chills, rigors. Denies headache or neck pain. Reported chest pain to the left side of her chest that radiated around to her back with some associated shortness of breath. She denies any diaphoresis. She states she became syncopal at home, but denies any head injury. Reported some nausea with vomiting, but no diarrhea or abdominal pain. Denied oral thrush or skin rashes. States she feels better and the left wrist/arm pain is improved, but is persistent in the area of the left wrist. The patient lives at home with multiple family members. She does not work outside the home. She smokes about half pack cigarettes per day. Denies alcohol or illicit drug use. Denies recent travel. States she has 2 dogs, but denies any bites or scratches. Denies chronic infectious diseases. - ROS Review of Systems: All systems reviewed and no additional remarkable complaints except as stated. - Results CBC & Chem 7: 06/27/19 04:09 06/27/19 04:09 - Exam Vitals: Temp Pulse Resp BP Pulse Ox 98.2 F 74 18 130/85 97 06/27/19 11:32 06/27/19 11:32 06/27/19 11:32 06/27/19 11:32 06/27/19 11:32 Exam: Head: Atraumatic, normal inspection, normocephalic. Eye: EOMI, PERRLA, no scleral icterus noted. ENT: Mucous membranes moist. No odontogenic infection noted. Neck: Normal inspection, no meningismus. Respiratory: Clear to auscultation. No rales, respiratory distress, rhonchi, or wheezes noted. Cardiovascular: Regular rate and rhythm, S1 and S2 audible. No murmurs, rubs, or gallops. GI: Soft, obese, normal bowel sounds. Nontender. Extremities: Left wrist dressing clean, dry, and intact. Positive motor/ sensation noted to the distal extremity. Capillary refill brisk to all fingers. Back: Normal inspection. No vertebral tenderness noted. Neurological: Alert, oriented 3, no focal deficits. Psychiatric: normal affect, normal mood. Skin: Dry, intact, warm. Normal color. No rashes. Ibuprofen [Motrin] 800 mg PO TID PRN 09/15/15 [History] Insulin Glargine,Hum.rec.anlog [Lantus Solostar] 55 unit SQ BID 09/15/15 [History] hydrOXYzine pamoate [HydrOXYzine Pamoate] 25 mg PO Q12H PRN 11/11/17 [History] Albuterol Sulfate [Proair Hfa] 1 puff IH Q6H PRN 06/24/19 [History] Cyclobenzaprine HCl 10 mg PO HS PRN 06/24/19 [History] Ergocalciferol (VITAMIN D2) [Vitamin D2] 50,000 unit PO FR 06/24/19 [History] Oxycodone HCl/Acetaminophen [Percocet 5-325 mg Tablet] 1 each PO Q6H PRN 06/24/19 [History] Pravastatin Sodium [Pravachol] 40 mg PO DAILY 06/24/19 [History] Pregabalin [Lyrica] 150 mg PO TID 06/24/19 [History] SUMAtriptan succinate [Imitrex] 50 mg PO Q2H PRN 06/24/19 [History] Semaglutide [Ozempic] 0.5 mg SQ FR 06/24/19 [History] Acyclovir [Zovirax] 800 mg PO HS 06/26/19 [History] Doxycycline 100 mg PO BID 06/26/19 [History] Insulin Regular, Human [Humulin R U-500 Kwikpen] 0 unit SQ TIDWM 06/26/19 [History] Lisinopril/Hydrochlorothiazide [Zestoretic 20-12.5 mg Tablet] 1 each PO DAILY 06/26/19 [History] Omeprazole [PriLOSEC] 40 mg PO DAILY 06/26/19 [History] Sitagliptin Phos/Metformin HCl [Janumet 50-1,000 mg Tablet] 1 tab PO BID 06/26/19 [History] levoFLOXacin [Levofloxacin] 500 mg PO DAILY 06/26/19 [History] traZODone [TraZODone] 50 - 100 mg PO HS PRN 06/26/19 [History] Allergy/AdvReac Type Severity Reaction Status Date / Time cefazolin [From [facility]] Allergy Severe Anaphylaxis Verified 06/26/19 11:35 Sulfa (Sulfonamide Allergy Severe Anaphylaxis Verified 06/26/19 11:35 Antibiotics) acetaminophen [From [place]] AdvReac Mild Rash Verified 06/26/19 11:35 - Assessment and Plan (1) Severe sepsis Current Visit: Yes Status: Acute The patient had 2 sepsis criteria with acute kidney injury, lactic acidosis, and hypotension requiring IV fluids. Likely secondary to left wrist infection. Improved. Leukocytosis and tachycardia resolved. Her acidosis and acute kidney injury resolved. Blood cultures drawn 06/24/19 are negative 2 sets. SNOMED Code(s): 70046490 (2) Wound infection Current Visit: Yes Status: Acute Location: Left wrist. Causative organism: MRSA. Likely secondary to recent surgical procedure. No imaging of the wrist has been done. Status post I&D 06/23/19. Concern for tendon involvement. Intraoperative cultures as above. Orthopedics consulted. No additional surgical intervention recommended at this time. Currently on IV vancomycin. SNOMED Code(s): 75277849 (3) Tenosynovitis Current Visit: Yes Status: Acute Location: Left wrist. Causative organism: MRSA. Status post I&D 06/23/19. Currently on IV vancomycin. SNOMED Code(s): 20822079 (4) Acute kidney injury Current Visit: Yes Status: Resolved Likely secondary to sepsis. Resolved. Continue to trend renal function. Dose adjust antibiotics and avoid nephrotoxins as able. SNOMED Code(s): 20034621, 02749129 (5) Diabetes Current Visit: No Status: Chronic Recommend aggressive glucose monitoring and control to promote wound healing and prevent reinfection. Management per the primary team. Qualifiers: Diabetes mellitus type: type 2 Diabetes mellitus complication status: with other specified complication SNOMED Code(s): 24261115 (6) Lactic acidosis Current Visit: Yes Status: Acute Likely secondary to sepsis. Resolved. SNOMED Code(s): 89359606 (7) Drug allergy, antibiotic Current Visit: Yes Status: Acute Sulfa-anaphylaxis. Cefazolin-Anaphylaxis. SNOMED Code(s): 397212462338576 - Recommendations Recommendations: Await blood cultures to finalize. Check ESR. Get CT of the left wrist without contrast. Wound care and activity per the orthopedics team. Continue vancomycin IV. Pharmacy to dose. Goal trough approximately 15. Duration of treatment depends on the clinical picture, but likely at least 14 days of IV antibiotics followed by orals. Continue IV antibiotics until evaluated by ID. sales representative facility services to assist with discharge planning. Consults vascular access team for PICC line placement prior to discharge. We will need weekly CBC, BUN/creatinine, ESR, CRP, think trough. We will need weekly PICC line care per protocol. Follow up with ID 07/05/19 at 1345. Past Med Surg Social Fam HX - Past Medical History Attestation: Yes The following information was validated with the patient. Source: patient, old records reviewed, nursing notes reviewed Medical history: arthritis, diabetes, GERD, hyperlipidemia, hypertension, kidney stones, migraine, seizures Additional medical history: VAGINAL HERPES Psychiatric history: anxiety, bipolar, depression, panic disorder, prior suicide attempt - Past Surgical History Surgical History: , cholecystectomy, orthopedic, other Additional surgical history: lithotripsy x 6 - Social History Smoking Status: Current every day smoker Packs per day: 0.5 Smokeless Tobacco Status: No Alcohol use: occasionally Drug use: none Occupational status: unemployed Current living situation: Home, With Family Activity Level: Independent ambulation Recent Out of Country Travel Within the Last 8 Weeks: No Exposure or Possible Exposure to Illness During Travel: No - Family History Mother Living Status: Still Living Hx Family Cardiac Disorders: Yes Hx Family Cancer: Yes (nonhodgekins, breast cancer) Hx Family Endocrine Disorder: Yes Consult Discharge Plan - Plan Referrals: NONE,PCP [Primary Care Provider] - Dionne Belcher, SAUSAGE CUTTER [Advanced Practice Nurse] - 07/05/19 1:45 pm
[2019-06-27] MEDS ORDERED: *HR* OxyCODONE Immed Rel 5 MG TABLET PO ONE (12:14)
--- NOTE | 2019-06-27 13:16 | Orthopedics Progress Note ---
Date of Encounter: 06/27/19 Time of Encounter: 12:20 - Assessment and Plan (1) Wound infection Current Visit: Yes Status: Acute POD#4 status post a left wrist incision drainage after prior endoscopic carpal tunnel release. Incisions are healing appropriately. Continue with local wound care cleansing with soap/water TID and recover with dry gauze and kerlix dressings. Continue to ice and elevate. Work on ROM as tolerated. Wound cx from [facility] was +MRSA Appreciate ID recommendations - currently on vancomycin. plan for PICC placement and IV abx for at least 14 days then transition to PO Will move scheduled appt in [facility] office from 06/29 to 07/04 for reevaluation outpatient. Subjective Principal diagnosis: Left wrist postoperative wound infection Interval history: Patient doing well today, states wrist is feeling better and she has improved motion. she states there has still been roughly quarter sized area of drainage on the dressings with each change. Denies any numbness or tingling in fingers and no other new symptoms. Objective Vital signs: Vital Signs Temp Pulse Resp BP Pulse Ox 06/27/19 11:32 98.2 F 74 18 130/85 97 06/27/19 07:45 98.6 F 76 18 117/80 96 06/27/19 04:22 98.8 F 76 20 132/85 93 06/27/19 00:04 98.9 F 82 96 135/78 06/26/19 22:08 96 06/26/19 19:56 99 F 86 20 133/89 96 06/26/19 15:39 98.7 F 73 16 134/71 97 Intake and Output 06/26/19 06/27/19 06/27/19 23:59 07:59 15:59 Intake Total 240 / 1080 250 / 610 360 / 610 Output Total 809 / 1809 Balance -569 / -729 250 / 610 360 / 610 Intake: IV Fluids 250 / 250 Vancocin 1,250 MG In 0.9 % 250 / 250 Sodium Chloride 250 ML @ 166.67 mls/hr IVPB Q12H [facility] Rx#: [id number] Oral 240 / 480 360 / 360 Output: Urine 809 / 1809 Other: Meal Dinner Breakfast Percent of Meal Consumed 100% 90% Blood Glucose* 262 229 295 Incision: healing (Incision healing appropriately with no surrounding erythema. small bubbles from open wound were packing was previously but no active drainage. tenderness to palpation around the incision. improving motion of wrist, able to make full fist. sensation intact distally, brisk cap refill.) - Labs CBC & BMP: 06/27/19 04:09 06/27/19 04:09 Labs: Abnormal lab results WBC 11.4 K/mcL (4.3-11.1) H 06/24/19 22:41 RBC 3.74 M/mcL (3.82-4.97) L 06/26/19 04:29 Hgb 11.0 g/dL (11.5-15.4) L 06/27/19 04:09 Hct 34.3 % (35.3-44.9) L 06/27/19 04:09 RDW 15.9 % (11.5-14.5) H 06/27/19 04:09 Nucleated RBCs/100 WBC 0.2 /100 WBC (0) H 06/27/19 04:09 APTT 25.4 Seconds (26.0-36.0) L 06/24/19 22:41 Sodium 132 mEq/L (136-145) L 06/27/19 04:09 Carbon Dioxide 22 mEq/L (23-29) L 06/26/19 04:29 BUN 30 mg/dL (6-20) H 06/24/19 22:41 Creatinine 1.25 mg/dL (0.60-1.20) H 06/24/19 22:41 Est GFR ( Amer) 56 (> 60) L 06/24/19 22:41 Est GFR (Non-Af Amer) 46 (> 60) L 06/24/19 22:41 Glucose 295 mg/dL (70-105) H 06/27/19 04:09 POC Glucose 262 mg/dL (70-99) H 06/26/19 20:11 Hemoglobin A1c 9.8 % (-5.6) H 06/24/19 22:41 Calcium 8.2 mg/dL (8.6-10.3) L 06/26/19 04:29 Magnesium 1.0 mg/dL (1.6-2.6) L 06/27/19 04:09 AST 11 Units/L (13-39) L 06/24/19 22:41 C-Reactive Protein 21 mg/L (Less than 10) H 06/26/19 04:29 Serum Total Protein 5.9 g/dL (6.4-8.9) L 06/24/19 22:41 Albumin 3.3 g/dL (3.5-5.7) L 06/24/19 22:41 Urine Glucose (UA) >=1000 mg/dL (Normal) H 06/25/19 02:10 Vancomycin Trough 11 mcg/mL (5-10) H 06/26/19 22:52 Consult Discharge Plan - Plan Referrals: Dionne Belcher MANAGER INTERVENTIONAL [Advanced Practice Nurse] - 07/05/19 1:45 pm NONE,PCP [Primary Care Provider] - Prescriptions: Vancomycin/0.9 % Sod Chloride [Vanco 1.25 gm/150 ml-0.9% NaCl] 1.25 gm IV Q12H 14 Days #28 plast..bag
[2019-06-27] MEDS ORDERED: Insulin DETEMIR 100 UNIT/ML X5UNITS SQ SCH (21:00)
[2019-06-27] MEDS: lamoTRIgine 25 MG TABLET PO SCH (21:58)
[2019-06-27] MEDS: traZODone 50 MG TABLET PO SCH (21:59)
[2019-06-28] MEDS: *HR* OxyCODONE Immed Rel 5 MG TABLET PO PRN ×2 (04:10→12:28)
[2019-06-28] MEDS: *HR* Heparin 5,000 UNIT/ML VIAL SQ SCH ×2 (05:58→14:46)
[2019-06-28 06:19] LABS: Basophils % 0.4 %; Eosinophils # 0.2 K/mcL (0.0-0.6); Eosinophils % 1.6 %; Hematocrit 33.5 % (35.3-44.9); Hemoglobin 10.8 g/dL (11.5-15.4); Immature Granulocytes % 1.2 % (0-4); Lymphocytes # 3.7 K/mcL (0.6-4.6); Lymphocytes % 33.4 %; Mean Corpuscular HGB Conc 32.2 g/dL (31.6-35.5); Mean Corpuscular Hemoglobin 27.8 pg (28.0-33.3); Mean Corpuscular Volume 86.1 fL (83.0-100.0); Mean Platelet Volume 11.2 fL (9.4-12.4); Monocytes # 0.8 K/mcL (0.0-1.3); Monocytes % 6.8 %; Neutrophils # 6.4 K/mcL (1.6-8.9); Nucleated Red Blood Cells 0.3 /100 WBC (0); Platelet Count 222 K/mcL (140-400); Red Blood Count 3.89 M/mcL (3.82-4.97); Red Cell Distribution Width 15.9 % (11.5-14.5); Segmented Neutrophils % 56.6 %; White Blood Count 11.2 K/mcL (4.3-11.1)
[2019-06-28 06:34] LABS: BUN/Creatinine Ratio 17 (6-26); Blood Urea Nitrogen 15 mg/dL (6-20); Calcium 9.1 mg/dL (8.6-10.3); Carbon Dioxide 25 mEq/L (23-29); Chloride 100 mEq/L (98-107); Glucose 283 mg/dL (70-105); Magnesium 1.4 mg/dL (1.6-2.6); Osmolality,Calculated 279 (280-300); Potassium 4.2 mEq/L (3.5-5.1); Sodium 129 mEq/L (136-145); eGFR For African Americans > 60 (> 60); eGFR For Non-African Americans > 60 (> 60)
[2019-06-28] MEDS ORDERED: Lidocaine -MPF 1% 5 ML AMPUL INFILT ONE (08:42)
[2019-06-28] MEDS: Pregabalin 75 MG CAPSULE PO SCH ×2 (08:54→14:47)
[2019-06-28] MEDS: Insulin LISPRO 300 UNITS/3 ML VIAL SQ SCH ×2 (08:55→12:28)
--- NOTE | 2019-06-28 09:30 | Discharge Summary ---
- NOTES TO OUTPATIENT PROVIDER Notes to Outpatient Provider: Follow-up with ID and orthopedics as outpatient. Weekly blood work while on IV vancomycin. Anti-HTN meds on hold Orders not resulted at time of discharge: Pending orders 06/24/19 22:50 Culture,Blood [BC] Stat Date of Encounter: 06/28/19 Time of Encounter: 07:45 - Discharge Diagnosis (1) Severe sepsis Priority: Primary Status: Acute (2) Wound infection Priority: Secondary Status: Acute (3) Acute kidney injury Priority: Secondary Status: Resolved (4) Diabetes Priority: Secondary Status: Chronic Qualifiers: Diabetes mellitus type: type 2 Diabetes mellitus half-way insulin use: with ferry terminal supervisor use Diabetes mellitus complication status: with other specified complication Qualified Code(s): E11.69 - Type 2 diabetes mellitus with other specified complication; Z79.4 - group home (current) use of insulin (5) History of seizures Priority: Secondary Status: Chronic (6) DVT prophylaxis Priority: Secondary Status: Acute Hospital course: Ms. Hernandez is a 48 year old female with history of hypertension, diabetes, and recent I&D for L wrist infection following carpal tunnel release, who was admitted due to severe sepsis secondary to L wrist infection. Was tachycardic, hypotensive, and had elevated white blood cell count/lactic acid on presentation. Clinically improved with broad-spectrum antibiotics and IV fluid. Wound culture later on came back positive for MRSA with imaging findings consistent with tenosynovitis of the left wrist. Managed in consultation with ID and orthopedics, and the decision was made to discharge the pt on 2 weeks of IV vancomycin with close ID and Orthopedics follow up. Discharge discussed with: patient, nurse, case management - Time Spent with Patient Total time spent providing and/or coordinating discharge services: - Discharge Medications Prescriptions: New Vancomycin/0.9 % Sod Chloride [Vanco 1.25 gm/150 ml-0.9% NaCl] 1.25 gm IV Q12H 14 Days #28 plast..bag Continued hydrOXYzine pamoate [HydrOXYzine Pamoate] 25 mg PO Q12H PRN PRN Reason: Anxiety Pregabalin [Lyrica] 150 mg PO TID Semaglutide [Ozempic] 0.5 mg SQ FR Pravastatin Sodium [Pravachol] 40 mg PO DAILY Albuterol Sulfate [Proair Hfa] 1 puff IH Q6H PRN PRN Reason: Wheezing SUMAtriptan succinate [Imitrex] 50 mg PO Q2H PRN PRN Reason: Migraine Headache Ergocalciferol (VITAMIN D2) [Vitamin D2] 50,000 unit PO FR Cyclobenzaprine HCl 10 mg PO HS PRN PRN Reason: Muscle Spasm Acyclovir [Zovirax] 800 mg PO HS Insulin Regular, Human [Humulin R U-500 Kwikpen] 0 unit SQ TIDWM Omeprazole [PriLOSEC] 40 mg PO DAILY Sitagliptin Phos/Metformin HCl [Janumet 50-1,000 mg Tablet] 1 tab PO BID traZODone [TraZODone] 50 - 100 mg PO HS PRN PRN Reason: Sleep Oxycodone HCl/Acetaminophen [Percocet 5-325 mg Tablet] 1 each PO Q6H PRN 4 Days #15 tablet PRN Reason: pain Ibuprofen [Motrin] 800 mg PO TID PRN PRN Reason: Pain Insulin Glargine,Hum.rec.anlog [Lantus Solostar] 55 unit SQ BID Discontinued Doxycycline 100 mg PO BID levoFLOXacin [Levofloxacin] 500 mg PO DAILY Lisinopril/Hydrochlorothiazide [Zestoretic 20-12.5 mg Tablet] 1 each PO DAILY Home Medications: Ibuprofen [Motrin] 800 mg PO TID PRN 09/15/15 [History] Insulin Glargine,Hum.rec.anlog [Lantus Solostar] 55 unit SQ BID 09/15/15 [History] hydrOXYzine pamoate [HydrOXYzine Pamoate] 25 mg PO Q12H PRN 11/11/17 [History] Albuterol Sulfate [Proair Hfa] 1 puff IH Q6H PRN 06/24/19 [History] Cyclobenzaprine HCl 10 mg PO HS PRN 06/24/19 [History] Ergocalciferol (VITAMIN D2) [Vitamin D2] 50,000 unit PO FR 06/24/19 [History] Pravastatin Sodium [Pravachol] 40 mg PO DAILY 06/24/19 [History] Pregabalin [Lyrica] 150 mg PO TID 06/24/19 [History] SUMAtriptan succinate [Imitrex] 50 mg PO Q2H PRN 06/24/19 [History] Semaglutide [Ozempic] 0.5 mg SQ FR 06/24/19 [History] Acyclovir [Zovirax] 800 mg PO HS 06/26/19 [History] Insulin Regular, Human [Humulin R U-500 Kwikpen] 0 unit SQ TIDWM 06/26/19 [History] Omeprazole [PriLOSEC] 40 mg PO DAILY 06/26/19 [History] Sitagliptin Phos/Metformin HCl [Janumet 50-1,000 mg Tablet] 1 tab PO BID 06/26/19 [History] traZODone [TraZODone] 50 - 100 mg PO HS PRN 06/26/19 [History] Vancomycin/0.9 % Sod Chloride [Vanco 1.25 gm/150 ml-0.9% NaCl] 1.25 gm IV Q12H 14 Days #28 plast..bag 06/27/19 [Rx] Oxycodone HCl/Acetaminophen [Percocet 5-325 mg Tablet] 1 each PO Q6H PRN 4 Days #15 tablet 06/28/19 [Rx] Allergies/Adverse Reactions: Allergy/AdvReac Type Severity Reaction Status Date / Time cefazolin [From Ancef] Allergy Severe Anaphylaxis Verified 06/26/19 11:35 Sulfa (Sulfonamide Allergy Severe Anaphylaxis Verified 06/26/19 11:35 Antibiotics) acetaminophen [From [place]] AdvReac Mild Rash Verified 06/26/19 11:35 Date of admission: 06/24/19 19:54 Primary care physician: PCP NONE Consults: 06/24/19 23:11 Consult to Orthopedic Surgery [CONS] Routine Consulting Provider: Orthopedics [facility] Reason for Consult: Concern for left wrist/hand skin and soft tissue infection Call Completed: Yes 06/27/19 09:36 Consult to Alignment Technician [CONS] Routine Reason for SW Consult: discharge planning 06/27/19 09:41 Consult to Infectious Diseases [CONS] Routine Consulting Provider: Infectious Disease [facility] Reason for Consult: MRSA wound infection of L wrist with possible tenosynovitis Call Completed: Yes 06/27/19 17:54 Consult to Invasive Line Access Team [CONS] Routine Reason for Consult: ferry terminal supervisor antibiotics Line Type: EPIV 06/28/19 08:42 Consult to Invasive Line Access Team [CONS] Routine Reason for Consult: Picc Line Insertion Line Type: PICC - Constitutional Vitals: Temp Pulse Resp BP Pulse Ox 98.2 F 73 16 116/75 93 06/28/19 07:24 06/28/19 07:24 06/28/19 07:24 06/28/19 07:24 06/28/19 07:24 Exam: General: Alert and oriented 3, not in distress Cardiovascular:Normal S1 & S2, no rubs, murmurs or gallops. No JVD. Pulse regular. Lungs:Normal breath sounds, no wheezes or crackles. Abdomen:Soft, non-tender, no rigidity. Extremities: Left hand dressing c/d/i Neurological:Normal cognition and motor skills. - Patient Status Disposition: Home Health Service Condition: Fair Functional capacity at discharge: independent ambulation Overall status at discharge: patient is progressing back to baseline - Ambulatory Orders Ambulatory Orders: Basic Metabolic Panel [CHEM] Time Frame: 1 Week, Facility: [facility], Location: Lab C-Reactive Protein [CHEM] Time Frame: 1 Week, Facility: [facility], Location: Lab Complete Blood Count [HEME] Time Frame: 1 Week, Facility: [facility], Location: Lab Erythrocyte Sedimentation Rate [HEME] Time Frame: 1 Week, Facility: [facility], Location: Lab Vancomycin,Trough [CHEM] Time Frame: 1 Week, Facility: [facility], Location: Lab - Discharge Instructions Instructions: Sepsis (DC), Diabetes Mellitus Type 2 in Adults (DC) Follow Up With: Argelia Wilkinson PAC [Physician International Coordinator] - 07/04/19 2:45 pm Dionne Belcher, ELECTRICIAN MAINTENANCE [Advanced Practice Nurse] - 07/05/19 1:45 pm NONE,PCP [Primary Care Provider] - - Diet and Activity Activity: resume usual activities as tolerated Diet: diabetic diet
--- NOTE | 2019-06-28 09:47 | Physician Discharge Referral ---
Home Health/Hosp Referral Info Transfer to: Home Health Provider in Charge Post Discharge: PCP - Diagnosis (1) Severe sepsis Priority: Primary Status: Acute (2) Wound infection Priority: Secondary Status: Acute (3) Acute kidney injury Priority: Secondary Status: Resolved (4) Diabetes Priority: Secondary Status: Chronic (5) History of seizures Priority: Secondary Status: Chronic (6) DVT prophylaxis Priority: Secondary Status: Acute - Respiratory Orders Smoking Cessation: Smoking cessation has been advised. For more information, call the [place] Tobacco Quit Line at 2-881-EBEU-NOW. - Services Needed Following services are medically necessary services: Nursing, Home Infusion - Transfer Medications Prescriptions: Oxycodone HCl/Acetaminophen [Percocet 5-325 mg Tablet] 1 each PO Q6H PRN 4 Days #15 tablet PRN Reason: pain Vancomycin/0.9 % Sod Chloride [Vanco 1.25 gm/150 ml-0.9% NaCl] 1.25 gm IV Q12H 14 Days #28 plast..bag Home Medications: Ibuprofen [Motrin] 800 mg PO TID PRN 09/15/15 [History] Insulin Glargine,Hum.rec.anlog [Lantus Solostar] 55 unit SQ BID 09/15/15 [History] hydrOXYzine pamoate [HydrOXYzine Pamoate] 25 mg PO Q12H PRN 11/11/17 [History] Albuterol Sulfate [Proair Hfa] 1 puff IH Q6H PRN 06/24/19 [History] Cyclobenzaprine HCl 10 mg PO HS PRN 06/24/19 [History] Ergocalciferol (VITAMIN D2) [Vitamin D2] 50,000 unit PO FR 06/24/19 [History] Pravastatin Sodium [Pravachol] 40 mg PO DAILY 06/24/19 [History] Pregabalin [Lyrica] 150 mg PO TID 06/24/19 [History] SUMAtriptan succinate [Imitrex] 50 mg PO Q2H PRN 06/24/19 [History] Semaglutide [Ozempic] 0.5 mg SQ FR 06/24/19 [History] Acyclovir [Zovirax] 800 mg PO HS 06/26/19 [History] Insulin Regular, Human [Humulin R U-500 Kwikpen] 0 unit SQ TIDWM 06/26/19 [History] Omeprazole [PriLOSEC] 40 mg PO DAILY 06/26/19 [History] Sitagliptin Phos/Metformin HCl [Janumet 50-1,000 mg Tablet] 1 tab PO BID 06/26/19 [History] traZODone [TraZODone] 50 - 100 mg PO HS PRN 06/26/19 [History] Vancomycin/0.9 % Sod Chloride [Vanco 1.25 gm/150 ml-0.9% NaCl] 1.25 gm IV Q12H 14 Days #28 plast..bag 06/27/19 [Rx] Oxycodone HCl/Acetaminophen [Percocet 5-325 mg Tablet] 1 each PO Q6H PRN 4 Days #15 tablet 06/28/19 [Rx] Allergies/Adverse Reactions: Allergy/AdvReac Type Severity Reaction Status Date / Time cefazolin [From Ancef] Allergy Severe Anaphylaxis Verified 06/26/19 11:35 Sulfa (Sulfonamide Allergy Severe Anaphylaxis Verified 06/26/19 11:35 Antibiotics) acetaminophen [From [place]] AdvReac Mild Rash Verified 06/26/19 11:35 Certification: Further, I certify that my clinical findings support that this patient is homebound (i.e. absences from home require considerable and taxing effort and are for medical reasons or scientology services or infrequently or short duration when for other reasons) because: Homebound Reason: Patient requires assistance of a person or device to safely leave home Attestation: My signature below is to certify that this patient is under my care and that I, or nurse practitioner, or a physician's clinical physician assistant working with me, has a [id number] encounter with this patient.
[2019-06-28] MEDS: Piperacillin/Tazobactam 3.375 GM in 0.9 % Sodium Chloride Mini Bag 100 ML IVPB SCH (11:20)
[2019-06-28 12:17] VITALS: BP 138/88
--- NOTE | 2019-06-28 13:47 | Infectious Disease Progress No ---
ID Progress Note Date of Encounter: 06/28/19 Time of Encounter: 13:45 - Subjective Subjective: Patient seen and examined. No acute events noted overnight. Patient complains of some chest discomfort since having her PICC line placed earlier today. Denies fevers, chills, rigors. No shortness of breath or cough. Denies nausea, vomiting, diarrhea, or constipation. Denies abdominal pain or urinary complaints. States her last bowel movement was 2 days ago. States her appetite is okay. Denies oral thrush or skin rashes. She is going to have an anxiety attack. - Objective CBC & Chem 7: 06/28/19 05:38 06/28/19 05:38 - Line Documentation Line Documentation: PICC Line - Exam Vitals: Temp Pulse Resp BP Pulse Ox 98.1 F 92 18 138/88 91 06/28/19 12:16 06/28/19 12:16 06/28/19 12:16 06/28/19 12:16 06/28/19 12:16 Exam: Head: Atraumatic, normal inspection, normocephalic. Eye: EOMI, PERRLA, no scleral icterus noted. ENT: Mucous membranes moist. No odontogenic infection noted. Neck: Normal inspection, no meningismus. Respiratory: Clear to auscultation. No rales, respiratory distress, rhonchi, or wheezes noted. Cardiovascular: Regular rate and rhythm, S1 and S2 audible. No murmurs, rubs, or gallops. GI: Soft, obese, normal bowel sounds. Nontender. Extremities: Left wrist dressing clean, dry, and intact. Positive motor/sensation noted to the distal extremity. Capillary refill brisk to all fingers. Back: Normal inspection. No vertebral tenderness noted. Neurological: Alert, oriented 3, no focal deficits. Psychiatric: normal affect, normal mood. Skin: Dry, intact, warm. Normal color. No rashes. - Assessment and Plan (1) Severe sepsis Current Visit: Yes Status: Acute The patient had 2 sepsis criteria with acute kidney injury, lactic acidosis, and hypotension requiring IV fluids. Likely secondary to left wrist infection. Improved. Leukocytosis and tachycardia resolved. Her acidosis and acute kidney injury resolved. Blood cultures drawn 06/24/19 are negative 2 sets. SNOMED Code(s): 39396637 (2) Wound infection Current Visit: Yes Status: Acute Location: Left wrist. Causative organism: MRSA. Likely secondary to recent surgical procedure. Status post I&D 06/23/19. Concern for tendon involvement. Intraoperative cultures as above. Orthopedics consulted. No additional surgical intervention recommended at this time. CT of the left wrist shows subcutaneous edema of the volar wrists at the surgica l site with adjacent subcutaneous gas. Subcutaneous gas and fluid also present within the carpal tunnel with gas extending more distally along the fifth flexor tendon sheath. Findings most compatible with infectious tenosynovitis given patient history. Currently on IV vancomycin. SNOMED Code(s): 54061283 (3) Tenosynovitis Current Visit: Yes Status: Acute Location: Left wrist. Causative organism: MRSA. Status post I&D 06/23/19. Currently on IV vancomycin. SNOMED Code(s): 32039152 (4) Acute kidney injury Current Visit: Yes Status: Resolved Likely secondary to sepsis. Resolved. Continue to trend renal function. Dose adjust antibiotics and avoid nephrotoxins as able. SNOMED Code(s): 18670323, 67680314 (5) Diabetes Current Visit: No Status: Chronic Recommend aggressive glucose monitoring and control to promote wound healing and prevent reinfection. Management per the primary team. Qualifiers: Diabetes mellitus type: type 2 Diabetes mellitus care home insulin use: with care home use Diabetes mellitus complication status: with other specified complication Qualified Code(s): E11.69 - Type 2 diabetes mellitus with other specified complication; Z79.4 - lobsterman (current) use of insulin SNOMED Code(s): 37695541 (6) Lactic acidosis Current Visit: Yes Status: Resolved Likely secondary to sepsis. Resolved. SNOMED Code(s): 64684963 (7) Drug allergy, antibiotic Current Visit: Yes Status: Acute Sulfa-anaphylaxis. Cefazolin-Anaphylaxis. SNOMED Code(s): 473000629777148 (8) Chest pain Current Visit: Yes Status: Acute Started after having PICC line inserted. Will check chest x-ray. Qualifiers: Chest pain type: unspecified Qualified Code(s): R07.9 - Chest pain, unspecified SNOMED Code(s): 19344155 - Recommendations Recommendations: Get portable chest x-ray. Await blood cultures to finalize. Wound care and activity per the orthopedics team. Continue vancomycin IV. Pharmacy to dose. Goal trough approximately 15. Duration of treatment depends on the clinical picture, but likely at least 14 days of IV antibiotics followed by orals. Continue IV antibiotics until evaluated by ID. supervisor ship maintenance services to assist with discharge planning. Consults vascular access team for PICC line placement prior to discharge. We will need weekly CBC, BUN/creatinine, ESR, CRP, think trough. We will need weekly PICC line care per protocol. Follow up with ID 07/05/19 at 1345. Consult Discharge Plan - Plan Instructions: Wound Infection (DC), Diabetes Mellitus Type 2 in Adults (DC), Sepsis (DC), Acute Wound Care (DC) Referrals: Argelia Wilkinson, PAC [Physician Search Engine Optimization Manager] - 07/04/19 2:45 pm (Please follow up as schedule..) Dionne Belcher, ROSE GRADING SUPERVISOR [Advanced Practice Nurse] - 07/05/19 1:45 pm (Please follow up as schedule..) NONE,PCP [Primary Care Provider] -
[2019-06-28] MEDS ORDERED: Aminoglycoside Consult 1 EACH MC ONE (16:01)
[2019-07-01] MEDS ORDERED: Ergocalciferol (VIT D2) 50,000 UNIT (1.25MG) CAP PO SCH (09:00)
== END 2019-06-28 16:02 | disposition home health service (06) | DRG 720 ==
LOC: 2ANU → SUATTDRO 19:54
PROVIDERS: ADMIT Student in an Organized Health Care Education/Training Program; ATTEND Internal Medicine